=== PATIENT | male | born 1955 | race Caucasian/White ===

== ENCOUNTER → 2021-08-17 16:16 | Outpatient (CLI) | payer OTHER, SELFPAY | PROVIDERS: PCP Nurse Practitioner Family; Visit Provider Nurse Practitioner Family | DX: Z11.52 Encounter for screening for COVID-19 (principal); R06.02 Shortness of breath; R05.1 Acute cough | CPT/HCPCS: C9803; U0003; U0005 ==

== ENCOUNTER → 2023-02-03 14:59 | Outpatient (CLI) | payer OTHER, MEDICARE, SELFPAY ==
[2023-02-03 16:48] LABS: Chloride 103 mmol/L (98-107); Sodium 138 mmol/L (136-145)
[2023-02-03 16:49] LABS: Potassium 4.3 mmoL/L (3.5-5.1)
[2023-02-03 16:51] LABS: Alanine Aminotransferase 35 U/L (12-78); Alkaline Phosphatase 82 U/L (38-126); Anion Gap 12.3 mEq/L (5-15); Aspartate Amino Transferase 27 U/L (17-59); Bilirubin,Total 0.4 mg/dl (0.2-1.3); Blood Urea Nitrogen 15 mg/dl (9-20); Carbon Dioxide 27 mmol/L (22.0-30.0); Estimated Glomerular Filt Rate 97 ml/min (>60); GFR (African American) 117 ML/MIN (>60)
[2023-02-03 16:52] LABS: Albumin Level 4.5 g/dl (3.5-5.0); Albumin/Globulin Ratio 1.6 (1.1-1.8); Globulin 2.8 g/dL (1.3-3.2); Glucose 97 mg/dl (74-100); Total Protein,Serum 7.3 g/dl (6.3-8.2)
== END ==
PROVIDERS: PCP Family Medicine; Visit Provider Family Medicine
DX: K57.92 Diverticulitis of intestine, part unspecified, without perforation or abscess without bleeding (principal)
CPT/HCPCS: 36415; 80053

== ENCOUNTER → 2023-02-07 09:18 | Outpatient (CLI) | payer OTHER, MEDICARE, SELFPAY ==
--- NOTE | 2023-02-07 09:29 | CT_ITS ---
FINAL REPORT TECHNIQUE: Postcontrast axial images through the abdomen and pelvis were performed. Oral contrast was administered. This study was performed with techniques to keep radiation doses as low as reasonably achievable, (ALARA). Individualized dose reduction techniques using automated exposure control or adjustment of mA and/or kV according to the patient's size were employed. CLINICAL HISTORY: DIVERTICULITIS FINDINGS: Abdomen: There is mild scarring in the lung bases. The liver is normal in size and attenuation. The spleen is unremarkable. The adrenals are normal. The pancreas is unremarkable. The kidneys enhance appropriately. The aorta is normal in caliber. There is gastrohepatic adenopathy measuring 12 mm that is nonspecific. No findings for mechanical bowel obstruction are identified. Pelvis: The appendix is is normal. There is diverticulosis of the sigmoid colon. The urinary bladder is unremarkable. No free fluid, free air, abscess or adenopathy is identified. There is a left inguinal hernia containing fat only. IMPRESSION: Sigmoid diverticulosis without evidence of diverticulitis. Nonspecific gastrohepatic adenopathy could be reactive or neoplastic. Reviewed, Interpreted and Dictated by Ronak Pham III, MD Transcribed by Krish Pringle Authenticated and [facility]
== END ==
PROVIDERS: PCP Nurse Practitioner; Visit Provider Nurse Practitioner
DX: K57.92 Diverticulitis of intestine, part unspecified, without perforation or abscess without bleeding (principal)
CPT/HCPCS: 74177; Q9967

== ENCOUNTER 2023-10-31 15:48 | Outpatient (CLI) | payer OTHER, MEDICARE, SELFPAY ==
--- NOTE | 2023-10-31 15:54 | XR_ITS ---
FINAL REPORT CLINICAL HISTORY: ACUTE KNEE PAIN FINDINGS: Right knee Three views were obtained. There is no acute fracture or dislocation. The joint spaces appear normal. No soft tissue abnormality is identified. IMPRESSION: No acute process. Reviewed, Interpreted and Dictated by Ralph Perry MD Transcribed by Ying Payne Authenticated and [facility]
== END 2023-10-31 23:59 | disposition home or self-care (01) ==
LOC: RAD 15:50
PROVIDERS: PCP Family Medicine; Visit Provider Family Medicine
DX: M25.561 Pain in right knee (principal)
CPT/HCPCS: 73562

== ENCOUNTER 2024-08-24 13:54 | Emergency (ER) | payer OTHER, MEDICARE, SELFPAY ==
[2024-08-24 14:04] VITALS: BP 158/82; PULSE 57; RESP 20; TEMP 36.8; O2SAT 97; BMI 31.8
--- NOTE | 2024-08-24 14:54 | ED_ITS ---
Discharge Plan Disposition Patient Disposition: Home, Self-Care Prescriptions Prescriptions: New doxycycline hyclate 100 mg capsule 100 mg PO BID 5 Days Qty: 10 0RF Referrals Follow up/Referrals: Stephany Huntley MD [Primary Care Provider] - See instructions Clinical Impressions Clinical Impression: Cellulitis of left hand Print Language Print Language: Maltese Discharge ED Provider: Evangelist Silva General Adult HPI General Chief complaint: Extremity Injury, Upper Stated complaint: swelling/pain in left hand Time Seen by Provider: 08/24/24 14:01 Mode of Arrival: Ambulatory Description of Symptoms (Recalled from ER Triage Doc. by RN): pt is here for left hand pain that started yesterday, no known injury or bite, pain radiates up into forearm, pt hand is swollen History of Present Illness HPI narrative: Please note that above description of symptoms, in this electronic medical record under categorization of recalled from ER triage doctor by RN are reflective of an initial nursing assessment, however, is not reflective of my full history and physical exam that was personally taken and clarified. Consequentially, this preceding description of symptoms, which may include the patient's categorized chief complaint in the EMR, do not reflect my personal clinical impression, and the ultimate description of history of present illness and patient stated complaints should be deferred to this section of the note. Unless stated otherwise or congruent with this section of the note, additional signs, symptoms, or incongruence should be interpreted as inaccurate with my clinical impression. Related Data Previous Rx's ?Medication ?Instructions ?Recorded doxycycline hyclate 100 mg capsule 100 mg PO BID 5 days #10 caps 08/24/24 Allergies Allergy/AdvReac Type Severity Reaction Status Date / Time NO KNOWN ALLERGIES Allergy Uncoded 03/28/17 15:36 [facility] Disclaimer: The information contained in this section may have been updated after the patient was seen, as this information can be updated by other users. Social History Smoking Status: Never smoker alcohol intake: never current occupational status: employed Travel in the last 8 weeks?: None ROS Obtained: Yes All systems reviewed & no additional complaints except as documented Physical Exam General General appearance: alert Head Head exam: atraumatic and normocephalic Eye Eye exam: Present normal appearance, PERRL and EOMI Neck Neck exam: Present normal inspection, full ROM and trachea midline Respiratory Respiratory exam: Absent respiratory distress, wheezes, stridor, accessory muscle use or prolonged expiratory phase Cardiovascular Cardiovascular exam: Present other (Pulses equal symmetric in upper and lower extremities) Abdominal Exam Abdominal exam: Present soft; Absent distention, tenderness or pulsatile mass Extremities Exam Extremities exam: Absent edema Neurological Exam Neurological exam: Present alert, oriented X3 and CN II-XII intact; Absent motor sensory deficit Skin Skin exam: Present warm and dry; Absent diaphoresis or erythema Medical Decision Making Medical Records Medical records reviewed: Yes I reviewed the patient's medical records. Screening: Per USPSTF and CDC recommendations, given the prevalence of disease in our region, it is our hospital?s policy to screen for HIV and viral Hepatitis for all patients aged 18 and over and those with ongoing risk factors. Chris Inquiry Pt receiving controlled substance: No Chris was queried for this patient: No Vital Signs: 08/24/24 14:04 Temperature 98.2 F Temperature Source Oral Pulse Rate [Left Radial] 57 L Respiratory Rate 20 Blood Pressure [Right Arm] 158/82 H Blood Pressure Mean [Right Arm] 107 02 Sat by Pulse Oximetry 97 Oxygen Delivery Method Room Air Orders (Tests/Meds): ORDERS Category Date Time Status POCUS Point of Care (ER Only) Stat Exams 08/24/24 14:18 Ordered Medical Decision Narrative: 69-year-old male presenting with left hand injury. Is been going on swelling since yesterday, 08/23. Discomfort, swelling, redness in the 1st and 2nd metacarpals soft tissue. Redness, warmth. No fevers or chills or systemic signs or symptoms. Tender with use. History obtained with patient. On arrival, he has redness, swelling, warmth, erythema dorsal aspect of his left hand in between 1st and 2nd metacarpals. No fluctuance. Differential includes cellulitis or abscess. Bedside [id number] ultrasound was performed. On independent interpretation, he has cellulitis without abscess. Given first dose of doxycycline here. Because patient at baseline without signs or symptoms of clinical decompensation, deemed appropriate for discharge. Results were relayed to patient who voiced understanding and were agreeable to outpatient management and follow up. I discussed my clinical impression with patient and answered all questions. At this time, the evidence for any other entities in the differential is insufficient to warrant any further testing or ED observation. This was explained as well. Advisory was given that persistent or worsening symptoms require further evaluation. I confirmed the understanding of this discussion. Adjuster Leader disclaimer Much of this encounter note is an electronic sales agent casualty [employer] spoken language to printed text. Electronic sales agent [employer] of the spoken language may permit errors. Although I have reviewed the note, some errors may still exist. Procedures Limited Ultrasound Indication:: Limited soft tissue ultrasound Indication: Tissue swelling and redness Identified structures: Location: Dorsal aspect left hand Findings: Cellulitis without abscess Impression: Cellulitis without abscess dorsal aspect of left hand Images were saved to permanent archive The study was technically adequate Soft Tissue CPT Codes: CPT Neck: 30324-56 CPT Upper extremity: 39989-97 CPT Axilla: 55419-66 CPT Chest wall: 43100-14 CPT Breast: 85272-67-GJ/LT (complete), 66392-13-SY/LT (limited), CPT Upper Back: 75720-75 CPT Lower Back: 16348-69 CPT Abdominal Wall: 23044-94 CPT Pelvic Wall: 85306-24 CPT Lower Extremity: 95210-15 CPT Other Soft Tissue: 72694-01 This study was performed by me, and I personally interpreted all images/videos. Based on my clinical judgement, these images were adequate and did not necessitate further imaging. Critical Care Critical Care Time Critical Care Time: No
[2024-08-24] MEDS: DOXYCYCLINE HYCL 100 MG TABLET PO (15:03)
[2024-08-24 15:07] VITALS: BP 134/64; PULSE 54; RESP 20; TEMP 36.8; O2SAT 98
== END 2024-08-24 15:07 | disposition home or self-care (01) ==
PROVIDERS: Emergency Provider Emergency Medicine; PCP Family Medicine
DX: L03.114 Cellulitis of left upper limb (principal)
CPT/HCPCS: 99284